=== PATIENT | male | born 1980 | race Caucasian/White ===

== ENCOUNTER 2017-01-27 14:37 | Emergency (ER) | payer MEDICARE, MEDICAID ==
[2017-01-27] MEDS ORDERED: OLANZapine 5 mg Oral Disintegrating Tab ONE (14:41)
--- NOTE | 2017-01-27 14:41 | ED Physician Chart ---
Chief Complaint/HPI - Patient Information Date Seen:: 01/27/17 Time Seen:: 14:41 Chief Complaint:: hearing voices History of Present Illness:: 36-year-old male history of schizophrenia, brought in by EMS with acute, moderate, symptom hearing voices that apparently started earlier today. Apparently the patient was on a bus to [place] and somehow exiting the bus stop. He was then found sleeping under the shade of a tree at a [place] [employer]. Apparently police were called because he was fluttering. He has associated increased paranoia and agitation. Says that he used to take olanzapine but does not take this medication anymore for his schizophrenia. History limited due to patient's underlying acute psychological disorder History provided by EMS Historian:: Patient, EMS Review:: Nurse's Note Reviewed, EMS run form Reviewed Review of Systems - Review of Systems Other: Complete system review otherwise unremarkable except as noted in history of present illness. Past Medical History - Past Medical History Past Medical History: No significant medical hx Family History: None Social History: Non Smoker, No Alcohol, No Drug Use, Other Surgical History: None Psychiatricy History: Schizophrenia Medication: None Family Medical History - Family Member Mother History Unknown: Yes Physical Exam - Physical Examination Other:: INITIAL VITAL SIGNS: Reviewed by me GENERAL: Alert and interactive psychotic and uncooperative. No acute distress. Somewhat disheveled. HEAD: Head is normocephalic and atraumatic EYES: EOMI. PERRL. No scleral icterus. No conjunctival injection ENT: Moist mucous membranes. NECK: Supple. No masses. Full range of motion RESPIRATORY: No tachypnea. Clear breath sounds bilaterally. No wheezing, rales, or rhonchi CV: Regular rate and rhythm. No murmurs, rubs, or gallops ABDOMEN: Soft, non-distended, non-tender. No guarding. No rebound. No masses. EXTREMITIES: No deformity. No cyanosis. No edema. SKIN: Warm and dry. No obvious rashes. NEUROLOGIC: Alert and oriented. Face is symmetric. Speech is normal. Moves all extremities equally. Motor and sensory distally intact. Labs/Radiology/EKG Results - Lab Results Results: Lab Results 01/27/17 01/27/17 Range/Units 14:52 14:52 WBC 10.2 (4.8-10.8) Th/cmm RBC 4.12 L (4.30-5.70) Mil/cmm Hgb 13.3 (13.2-17.3) gm/dL Hct 40.4 (39.0-49.0) % MCV 98.0 (80-99) fl MCH 32.2 H (26.0-30.0) pg MCHC Differential 32.8 (28.0-36.0) pg RDW 12.9 (11.5-20.0) % Plt Count 220 (150-400) Th/cmm MPV 8.1 fl Neutrophils % 46.1 (40.0-80.0) % Lymphocytes % 42.5 (20.0-50.0) % Monocytes % 7.2 (2.0-10.0) % Eosinophils % 3.6 (0.0-5.0) % Basophils % 0.6 (0.0-2.0) % Sodium 137 (136-145) mEq/L Potassium 3.7 (3.5-5.1) mEq/L Chloride 103 (98-107) mEq/L Carbon Dioxide 25.4 (21.0-31.0) mEq/L Anion Gap 12.3 (7.0-16.0) BUN 9 (7-25) mg/dL Creatinine 0.8 (0.7-1.3) mg/dL Est GFR ( Amer) > 60.0 (>90) ml/min Est GFR (Non-Af Amer) > 60.0 ml/min BUN/Creatinine Ratio 11.3 Glucose 92 (70-105) mg/dL Calcium 9.4 (8.6-10.3) mg/dL Total Bilirubin 0.6 (0.3-1.0) mg/dL AST 17 (13-39) U/L ALT 15 (7-52) U/L Alkaline Phosphatase 87 (34-104) U/L Total Protein 6.5 (6.0-8.3) gm/dL Albumin 3.9 L (4.2-5.5) gm/dL Globulin 2.6 gm/dL Albumin/Globulin Ratio 1.5 (1.0-1.8) Salicylates < 25.0 L (30.0-100.0) mg/L Acetaminophen < 10.0 L (10.0-30.0) ug/mL Ethyl Alcohol < 10 (0-10) mg/dL ED Septic Shock - . Is Septic Shock (SBP<90, OR Lactate>4 mmol\L) present?: No Reassessment (Disposition) - Reassessment Reassessment:: Patient received Zyprexa Zydis 10 mg ODT. Patient severely agitated and dangerous, threatening nursing staff, becoming physically violent. He required chemical sedation. Patient resting comfortably. ED observation Note: Patient placed in ED observation status at: 1641, to determine need for admission vs. potential discharge and outpatient follow-up. Patent re-evaluated every two hours during the ED course. Old records requested and reviewed. Additional history obtained from all available sources. Observation revealed: Continue psychosis At the time of final evaluation the patient revealed the need for further observation and psych eval. Total ED observation time is greater than 8 hours. We'll continue to seek psychiatric evaluation. Patient care transitioned to new ED physician at change of shift. presumed dispo: transfer to psych facility. Reassessment Condition:: Unchanged - Diagnosis Diagnosis:: Acute psychosis, NOS - Patient Disposition Discharge/Transfer:: Acute Care (other hosp) Time:: 06:36 Condition at Disposition:: Stable
[2017-01-27] MEDS: OLANZapine 5 mg Oral Disintegrating Tab PO ONE (14:45)
[2017-01-27 14:59] LABS: % BASOPHILS 0.6 % (0.0-2.0); % EOSINOPHILS 3.6 % (0.0-5.0); % LYMPHOCYTES 42.5 % (20.0-50.0); % MONOCYTES 7.2 % (2.0-10.0); % NEUTROPHILS 46.1 % (40.0-80.0); HEMATOCRIT 40.4 % (39.0-49.0); HEMOGLOBIN 13.3 gm/dL (13.2-17.3); MEAN CORPUSCULAR HEMOGLOBIN 32.2 pg (26.0-30.0); MEAN CORPUSCULAR HGB CONC 32.8 pg (28.0-36.0); MEAN PLATELET VOLUME 8.1 fl; NEUTROPHILE ABSOLUTE 4.7 Th/cmm (1.8-8.0); PLATELET COUNT 220 Th/cmm (150-400); RED BLOOD COUNT 4.12 Mil/cmm (4.30-5.70); RED CELL DISTRIBUTION WIDTH 12.9 % (11.5-20.0); WHITE BLOOD COUNT 10.2 Th/cmm (4.8-10.8)
[2017-01-27 15:17] LABS: ALB/GLOB RATIO 1.5 (1.0-1.8); ALKALINE PHOSPHATASE 87 U/L (34-104); ANION GAP 12.3 (7.0-16.0); BILIRUBIN,TOTAL 0.6 mg/dL (0.3-1.0); BUN - UREA NITROGEN 9 mg/dL (7-25); BUN/CREATININE RATIO 11.3; CALCIUM SERUM 9.4 mg/dL (8.6-10.3); CARBON DIOXIDE 25.4 mEq/L (21.0-31.0); CHLORIDE 103 mEq/L (98-107); CREATININE - SERUM 0.8 mg/dL (0.7-1.3); GLUCOSE 92 mg/dL (70-105); POTASSIUM SERUM 3.7 mEq/L (3.5-5.1); SGOT 17 U/L (13-39); SGPT/ALT 15 U/L (7-52); SODIUM SERUM 137 mEq/L (136-145)
[2017-01-27] MEDS ORDERED: Ketamine 50 mg/mL 10mL Vial ONE (15:37)
[2017-01-27] MEDS: Ketamine 50 mg/mL 10mL Vial IM STA (15:43)
[2017-01-27] MEDS ORDERED: Haloperidol Lactate 5 mg/mL 1mL Vial ONE (16:34)
[2017-01-27] MEDS: Haloperidol Lactate 5 mg/mL 1mL Vial IM STA (16:41)
[2017-01-27 16:58] LABS: ACETAMINOPHEN < 10.0 ug/mL (10.0-30.0)
[2017-01-27 19:28] LABS: URINE COLOR YELLOW
[2017-01-27 19:29] LABS: URINE BILIRUBIN NEGATIVE (NEGATIVE); URINE BLOOD NEGATIVE (NEGATIVE); URINE GLUCOSE (UA) NEGATIVE (NEGATIVE); URINE KETONE NEGATIVE (NEGATIVE); URINE PROTEIN NEGATIVE (NEGATIVE); URINE UROBILINOGEN 0.2 E.U./dL (0.2 - 1.0)
[2017-01-27 19:30] LABS: URINE BACTERIA NONE SEEN /hpf (NONE SEEN); URINE EPITHELIAL CELLS NONE SEEN /lpf (FEW); URINE RBC NONE SEEN /hpf (0-5); URINE WBC NONE SEEN /hpf (0-5)
[2017-01-27 19:53] LABS: AMPHETAMINE URINE NEGATIVE (NEGATIVE); BARBITURATES URINE NEGATIVE (NEGATIVE); METHADONE URINE NEGATIVE (NEGATIVE)
--- NOTE | 2017-01-29 02:03 | Consultation ---
DATE OF CONSULTATION: 01/28/2017 CHIEF COMPLAINT: ____ medications. HISTORY OF PRESENT ILLNESS: The patient is a 36-year-old male with a history of chronic mental illness, currently in the ER, said he has been off his psychiatric medication, he has been using some alcohol. The patient has been hearing voices, feeling more paranoid, anxious, but he has no suicidal thoughts. The patient said he is struggling, he has no place to go. PAST PSYCHIATRIC HISTORY: Multiple hospitalizations, the patient has been last at [facility] in [place] about a month ago. PAST MEDICAL HISTORY: The patient is in the process of being medically cleared in the ER. PSYCHOSOCIAL HISTORY: The patient is on SSI, he is homeless at this time, he has extensive alcohol use. MENTAL STATUS EXAMINATION: The patient was disheveled, unkempt, makes fair eye contact, he is oriented to time, place and person. The patient admits to having auditory hallucinations. He appears to be somewhat paranoid. Affect is dysphoric. ASSESSMENT: Schizophrenia, paranoid type, acute exacerbation versus schizoaffective disorder and alcohol dependence. PLAN: At this time, would recommend inpatient hospitalization. The patient is in agreement. The patient is not able to care for himself. Thank you for the consultation. [facility]# [id number]
== END 2017-01-28 20:00 ==
LOC: ER 14:37
DX: F23 Brief psychotic disorder (principal); F20.9 Schizophrenia, unspecified
CPT/HCPCS: 99285; 96372 ×4; 80307; 36415; 85025; 81001; 80329 ×2; 80320; 80053; J2060; J1200; J1630; X6436; Z7502; Z7610